=== PATIENT | male | born 1970 | race Caucasian/White ===

== ENCOUNTER 2020-02-14 17:35 | Inpatient (IN) | payer OTHER ==
[~2020-02-14] VITALS: Ht 185.4 cm; Wt 139.0 kg
--- NOTE | 2020-02-14 18:04 | Emergency Department Note ---
History of Present Illnes History of Present Illness Chief Complaint: General Medicine Complaints History of Present Illness This is a 50 year old male arrives to the ED with worsening bilateral pedal edema for several days, patient states edema has now spread to his scrotum.. 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 Any updates have been documented here. (ALIDA CLAROS DO) Past Medical History Recent Fever: No Clinical Suspicion of Infectio: Yes New/Unexplained Change in Ment: No Past Medical History: Hypertension, Diabetes, CHF, Hypothyroidism, Hyperlipedemia Other Surgery: DOUBLE BYPASS (ALIDA CLAROS DO) Social History Physically hurt or threatened: No (ALIDA CLAROS DO) Review of Systems Review of Systems Constitutional: Reports no symptoms EENTM: Reports no symptoms Cardiovascular: Reports no symptoms Respiratory: Reports no symptoms Gastrointestinal: Reports no symptoms Genitourinary: Reports no symptoms Musculoskeletal: Reports joint swelling Integumentary: Reports no symptoms Neurological: Reports no symptoms Psychological: Reports no symptoms Endocrine: Reports no symptoms Hematological/Lymphatic: Reports no symptoms (ALIDA CLAROS DO) Physical Exam Related Data Allergies: Coded Allergies: Penicillins (Verified Allergy, Unknown, 02/14/20) Triage Vital Signs Vital Signs Date Time Temp Pulse Resp B/P (MAP) Pulse Ox O2 Delivery O2 Flow Rate FiO2 02/14/20 17:51 98.8 80 18 159/78 100 Room Air Vital signs reviewed: Yes (ALIDA CLAROS DO) Physical Exam CONSTITUTIONAL Constitutional: Present well-developed, Present well-nourished, Present morbidly obese HENT HENT: Present normocephalic, Present atraumatic, Present oropharynx clear/moist, Present nose normal HENT L/R: Present left ext ear normal, Present right ext ear normal EYES Eyes: Reports PERRL, Reports conjunctivae normal NECK Neck: Present ROM normal PULMONARY Pulmonary: Present effort normal, Present breath sounds normal CARDIOVASCULAR Cardiovascular: Present regular rhythm, Present heart sounds normal, Present capillary refill normal, Present normal rate GASTROINTESTINAL Abdominal: Present soft, Present nontender, Present bowel sounds normal, Present distension GENITOURINARY Genitourinary: Present exam deferred, Present other (dependent scrotal edema) SKIN Skin: Present warm, Present dry MUSCULOSKELETAL Musculoskeletal: Present ROM normal, Present swelling NEUROLOGICAL Neurological: Present alert, Present oriented x 3, Present no gross motor or sensory deficits PSYCHOLOGICAL Psychological: Present mood/affect normal, Present judgement normal (ALIDA CLAROS, ) Results Laboratory Lab results reviewed: Yes (ALIDA CLAROS, ) Laboratory Laboratory Tests Test 02/14/20 18:00 White Blood Count 7.31 x10e3/uL (4.8-10.8) Red Blood Count 4.63 x10e6/uL (4.3-5.7) Hemoglobin 11.1 g/dL (14.0-18.0) Hematocrit 35.8 % (38.2-49.6) Mean Corpuscular Volume 77.3 fL (81-99) Mean Corpuscular Hemoglobin 24.0 pg (28-32) Mean Corpuscular Hemoglobin Concent 31.0 g/dL (31-35) Red Cell Distribution Width 15.4 % (11.7-14.4) Platelet Count 307 x10e3/uL (140-360) Neutrophils (%) (Auto) 75.9 % (38.7-80.0) Lymphocytes (%) (Auto) 12.9 % (18.0-39.1) Monocytes (%) (Auto) 8.6 % (4.4-11.3) Eosinophils (%) (Auto) 1.6 % (0.0-6.0) Basophils (%) (Auto) 0.3 % (0.0-1.0) Neutrophils # (Auto) 5.6 (2.1-6.9) Lymphocytes # (Auto) 0.9 (1.0-3.2) Monocytes # (Auto) 0.6 (0.2-0.8) Eosinophils # (Auto) 0.1 (0.0-0.4) Basophils # (Auto) 0.0 (0.0-0.1) Absolute Immature Granulocyte (auto 0.05 x10e3/uL (0-0.1) Sodium Level 137 mmol/L (136-145) Potassium Level 4.6 mmol/L (3.5-5.1) Chloride Level 101 mmol/L (98-107) Carbon Dioxide Level 28 mmol/L (22-29) Anion Gap 12.6 mmol/L (8-16) Blood Urea Nitrogen 40 mg/dL (7-26) Creatinine 2.14 mg/dL (0.72-1.25) Estimat Glomerular Filtration Rate 33 ML/MIN (60-) BUN/Creatinine Ratio 19 (6-25) Glucose Level 169 mg/dL (74-118) Calcium Level 9.3 mg/dL (8.4-10.2) Total Bilirubin 0.4 mg/dL (0.2-1.2) Aspartate Amino Transf (AST/SGOT) 28 IU/L (5-34) Alanine Aminotransferase (ALT/SGPT) 28 IU/L (0-55) Alkaline Phosphatase 86 IU/L (40-150) Creatine Kinase 385 IU/L (30-200) Creatine Kinase MB 5.00 ng/mL (0-5.0) Troponin I 0.072 ng/mL (0-0.300) B-Type Natriuretic Peptide 280.1 pg/mL (0-100) Total Protein 6.7 g/dL (6.5-8.1) Albumin 2.9 g/dL (3.5-5.0) Globulin 3.8 g/dL (2.3-3.5) Albumin/Globulin Ratio 0.8 (0.8-2.0) Lab results reviewed: Yes (STEVE MANRIQUEZ MD) Imaging Imaging results reviewed: Yes (ALIDA CLAROS, ) Imaging results reviewed: Yes Impressions Procedure: [id number] DX/CHEST SINGLE (PORTABLE) Exam Date: 02/14/20 Exam Time: 1840 REPORT STATUS: Signed EXAM: CHEST SINGLE (PORTABLE), DATE: 02/14/2020 6:40 PM INDICATION: Pedal edema. COMPARISON: None FINDINGS: Support devices: None. Lungs/pleura: The lungs are hypoinflated with bronchovascular crowding. There are prominent interstitial lung markings and probable trace left pleural effusion. Cardiac and mediastinal: the heart is mildly enlarged. Bones and soft tissues: Status post median sternotomy. No acute osseous abnormality. IMPRESSION: 1. Cardiomegaly with prominent interstitial lung markings which likely reflect mild pulmonary edema. 2. Probable trace left pleural effusion. The image was reviewed by Monik Cordoba MD. Signed by: Monik Cordoba MD on 02/14/2020 8:43 PM Dictated By: MONIK CORDOBA MD 42 Transcribed By: KG on 02/14/202042 (STEVE MANRIQUEZ MD) Assessment & Plan Medical Decision Making MDM 50-year-old arrived to the ED with complaints of bilateral pedal edema that is worsening and now spreading up to his scrotum. Patient findings after [place] to follow labs and ultimately disposition the patient (ALIDA CLAROS DO) MDM i spoke with dr figueroa. admit pt to inpatient (STEVE MANRIQUEZ MD) Assessment & Plan Final Impression: (1) Cellulitis (2) Edema (ALIDA CLAROS DO) Final Impression: (1) Cellulitis (2) Edema (3) Pulmonary edema (4) Renal insufficiency (STEVE MANRIQUEZ MD) Depart Disposition: ADMITTED Last Vital Signs Date Time Temp Pulse Resp B/P (MAP) Pulse Ox O2 Delivery O2 Flow Rate FiO2 02/14/20 17:51 98.8 80 18 159/78 100 Room Air (ALIDA CLAROS DO) ALIDA CLAROS DO Feb 14, 2020 18:03 STEVE MANRIQUEZ MD Feb 14, 2020 20:51
[2020-02-14] MEDS ORDERED: CLINDAMYCIN PHOS 900MG/ 50ML 50 ML IV STA (18:21)
[2020-02-14 18:27] LABS: BASOPHILS % 0.3 % (0.0-1.0); EOSINOPHILS # (AUTO) 0.1 (0.0-0.4); EOSINOPHILS % 1.6 % (0.0-6.0); HEMATOCRIT 35.8 % (38.2-49.6); HEMOGLOBIN 11.1 g/dL (14.0-18.0); LYMPHOCYTES # (AUTO) 0.9 (1.0-3.2); LYMPHOCYTES % 12.9 % (18.0-39.1); MEAN CORPUSCULAR VOLUME 77.3 fL (81-99); MONOCYTES # (AUTO) 0.6 (0.2-0.8); MONOCYTES % 8.6 % (4.4-11.3); NEUTROPHILS # (AUTO) 5.6 (2.1-6.9); NEUTROPHILS % 75.9 % (38.7-80.0); PLATELET COUNT 307 x10e3/uL (140-360); RED BLOOD COUNT 4.63 x10e6/uL (4.3-5.7); RED CELL DISTRIBUTION WIDTH 15.4 % (11.7-14.4)
[2020-02-14 18:41] LABS: ALBUMIN 2.9 g/dL (3.5-5.0); ALBUMIN/GLOBULIN RATIO 0.8 (0.8-2.0); ANION GAP 12.6 mmol/L (8-16); CALCIUM 9.3 mg/dL (8.4-10.2); CREATININE, SERUM 2.14 mg/dL (0.72-1.25); POTASSIUM 4.6 mmol/L (3.5-5.1)
--- NOTE | 2020-02-14 20:47 | Diagnostic Imaging Report ---
EXAM: CHEST SINGLE (PORTABLE), DATE: 02/14/2020 6:40 PM INDICATION: Pedal edema. COMPARISON: None FINDINGS: Support devices: None. Lungs/pleura: The lungs are hypoinflated with bronchovascular crowding. There are prominent interstitial lung markings and probable trace left pleural effusion. Cardiac and mediastinal: the heart is mildly enlarged. Bones and soft tissues: Status post median sternotomy. No acute osseous abnormality. IMPRESSION: 1. Cardiomegaly with prominent interstitial lung markings which likely reflect mild pulmonary edema. 2. Probable trace left pleural effusion. The image was reviewed by Blanca Christianson MD. Signed by: Blanca Christianson MD on 02/14/2020 8:43 PM
[2020-02-14] MEDS ORDERED: SODIUM CHLORIDE FLUSH 10 ML SYR INJ PRN (21:00)
[2020-02-14] MEDS ORDERED: DEXTROSE 50% SYRINGE 50 ML IV PRN (21:00)
[2020-02-14] MEDS: FUROSEMIDE INJ 10 MG/ML 4 ML VIAL IV SCH (21:15)
[2020-02-14] MEDS: CLINDAMYCIN PHOS 900MG/ 50ML 50 ML IV SCH (21:27)
[2020-02-14] MEDS: INSULIN REGULAR, HUMAN 100 UNIT/1 ML 3ML VIAL SQ SCH (22:04)
[2020-02-15] VITALS (8 sets, daily range): BP systolic 119–156; BP diastolic 50–82
--- NOTE | 2020-02-15 01:00 | NUR ---
Patient received from ER via wheelchair. AAO x 4. Patient had no complaints of pain. Respirations even and non-labored. Admission history obtained. Initial physical assessment performed. Bilateral lower extremities erythematous/edematous. Safety measures implemented. Patient oriented to room, call light and plan of care. Patient instructed to call for assistance when needed. Call light within reach.
[2020-02-15] MEDS ORDERED: ALOGLIPTIN12.5 MG PO (01:50)
[2020-02-15] MEDS ORDERED: LISINOPRIL10 MG PO (01:50)
[2020-02-15] MEDS ORDERED: GABAPENTIN300 MG PO (01:50)
[2020-02-15] MEDS ORDERED: ATORVASTATIN CA20 MG PO (01:50)
[2020-02-15] MEDS ORDERED: FUROSEMIDE80 MG PO (01:50)
[2020-02-15] MEDS ORDERED: ZETIA10 MG PO (01:50)
[2020-02-15] MEDS ORDERED: FENOFIBRATE145 MG PO (01:50)
[2020-02-15] MEDS ORDERED: LEVOTHYROXINE88 MCG PO (01:50)
[2020-02-15] MEDS ORDERED: METOPROLOL SUCC25 MG PO (01:50)
--- NOTE | 2020-02-15 03:29 | NUR ---
Blood specimen sent to lab for analysis of cardiac enzymes.
[2020-02-15 03:57] LABS: CHOL/HDL RATIO 8.1 (3.9-4.7); CHOLESTEROL 220 MD/DL (0-199); HDL CHOLESTEROL 27 MG/DL (40-60); TRIGLYCERIDES 527 MG/DL (0-149)
[2020-02-15 04:19] LABS: THYROID STIMULATING HORMONE 3.466 uIU/mL (0.350-4.940)
[2020-02-15] MEDS ORDERED: SODIUM CHLORIDE 0.9% 250ML 250 ML ONE (05:28)
[2020-02-15 06:11] LABS: BASOPHILS % 0.3 % (0.0-1.0); EOSINOPHILS # (AUTO) 0.1 (0.0-0.4); EOSINOPHILS % 1.8 % (0.0-6.0); HEMATOCRIT 35.5 % (38.2-49.6); HEMOGLOBIN 10.9 g/dL (14.0-18.0); LYMPHOCYTES # (AUTO) 0.9 (1.0-3.2); LYMPHOCYTES % 13.9 % (18.0-39.1); MEAN CORPUSCULAR HGB CONC 30.7 g/dL (31-35); MEAN CORPUSCULAR VOLUME 78.2 fL (81-99); MONOCYTES # (AUTO) 0.6 (0.2-0.8); MONOCYTES % 9.4 % (4.4-11.3); PLATELET COUNT 302 x10e3/uL (140-360); RED BLOOD COUNT 4.54 x10e6/uL (4.3-5.7); RED CELL DISTRIBUTION WIDTH 15.6 % (11.7-14.4)
[2020-02-15] MEDS: CLINDAMYCIN PHOS 900MG/ 50ML 50 ML IV SCH ×3 (06:15→21:01)
[2020-02-15 06:27] LABS: ALBUMIN 2.8 g/dL (3.5-5.0); ALBUMIN/GLOBULIN RATIO 0.8 (0.8-2.0); ANION GAP 12.7 mmol/L (8-16); CREATININE, SERUM 2.13 mg/dL (0.72-1.25); POTASSIUM 4.7 mmol/L (3.5-5.1)
[2020-02-15 06:50] LABS: CREATINE KINASE MB 4.1 ng/mL (0-5.0)
--- NOTE | 2020-02-15 07:00 | NUR ---
Walking rounds done. Patient resting comfortably. BSSR given to oncoming nurse regarding patient's status.
--- NOTE | 2020-02-15 07:00 | NUR ---
BEDSIDE SHIFT REPORT RECEIVED FROM THE FORGING DIE SINKER RN. EDUCATED PT ABOUT FALL PRECAUTIONS. PT VERBALIZED UNDERSTANDING. CALL LIGHT WITH IN EASY REACH. BED IS LOW AND LOCKED. SIDE RAILS X2. PT DENIES NEEDS AT THIS TIME.
[2020-02-15] MEDS: INSULIN REGULAR, HUMAN 100 UNIT/1 ML 3ML VIAL SQ SCH ×4 (08:30→21:08)
[2020-02-15] MEDS: FUROSEMIDE INJ 10 MG/ML 4 ML VIAL IV SCH ×2 (08:51→21:01)
[2020-02-15] MEDS ORDERED: ASPIRIN CHEW81 MG PO (08:55)
[2020-02-15 13:39] LABS: CREATINE KINASE MB 4.6 ng/mL (0-5.0)
--- NOTE | 2020-02-15 19:15 | NUR ---
BEDSIDE SHIFT REPORT GIVEN TO THE FURNITURE ASSOCIATE RN. PT DENIED FURTHER NEEDS.
[2020-02-16] VITALS (7 sets, daily range): BP systolic 112–145; BP diastolic 52–77
[2020-02-16 06:21] LABS: BASOPHILS % 0.3 % (0.0-1.0); EOSINOPHILS # (AUTO) 0.2 (0.0-0.4); EOSINOPHILS % 2.3 % (0.0-6.0); HEMATOCRIT 36.1 % (38.2-49.6); HEMOGLOBIN 11.1 g/dL (14.0-18.0); LYMPHOCYTES # (AUTO) 0.9 (1.0-3.2); MEAN CORPUSCULAR HEMOGLOBIN 24.1 pg (28-32); MEAN CORPUSCULAR HGB CONC 30.7 g/dL (31-35); MEAN CORPUSCULAR VOLUME 78.3 fL (81-99); MONOCYTES # (AUTO) 0.6 (0.2-0.8); MONOCYTES % 9.7 % (4.4-11.3); NEUTROPHILS # (AUTO) 4.8 (2.1-6.9); NEUTROPHILS % 74.2 % (38.7-80.0); PLATELET COUNT 287 x10e3/uL (140-360); RED BLOOD COUNT 4.61 x10e6/uL (4.3-5.7); RED CELL DISTRIBUTION WIDTH 15.4 % (11.7-14.4)
[2020-02-16] MEDS: CLINDAMYCIN PHOS 900MG/ 50ML 50 ML IV SCH ×3 (06:22→21:25)
[2020-02-16 06:38] LABS: ANION GAP 12.1 mmol/L (8-16); CALCIUM 9.6 mg/dL (8.4-10.2); CREATININE, SERUM 2.13 mg/dL (0.72-1.25); POTASSIUM 5.1 mmol/L (3.5-5.1)
[2020-02-16] MEDS: INSULIN REGULAR, HUMAN 100 UNIT/1 ML 3ML VIAL SQ SCH ×4 (07:30→21:30)
--- NOTE | 2020-02-16 07:44 | NUR ---
REPORT GIVEN TO DAYSHIFT. ALERT. NO SIGNS IV INFILTRATION. BED LOCKED AND IN LOW POSITION. CALL LIGHT WITHIN REACH. BED ALARM ACTIVATED.
--- NOTE | 2020-02-16 07:50 | NUR ---
PATIENT IS ALERT, AWAKE, AND IN STABLE CONDITION WITH NO S/S OF RESPIRATORY DISTRESS. NO PAIN VOICED. BILATERAL LOWER EXTREMITIES ARE EDEMATOUS AND ANTIONE. PATIENT REFUSES NON-SKID SOCKS. CALL LIGHT IS WITHIN REACH, PATIENT INSTRUCTED TO CALL FOR ASSISTANCE NEEDED.
[2020-02-16] MEDS: FUROSEMIDE INJ 10 MG/ML 4 ML VIAL IV SCH ×2 (08:30→21:23)
[2020-02-16] MEDS ORDERED: ONDANSETRON HCL INJ 2MG/ML 2ML 2 MG/ML VIAL IV PRN (14:15)
[2020-02-16] MEDS ORDERED: TRAMADOL HCL 50 MG TAB PO PRN (14:15)
[2020-02-16] MEDS ORDERED: HYDRALAZINE HCL 20 MG/ML VIAL IV PRN (14:15)
[2020-02-16] MEDS ORDERED: ACETAMINOPHEN 325 MG TAB PO PRN (14:15)
[2020-02-16] MEDS: DOCUSATE SODIUM 100 MG CAP PO SCH ×2 (15:15→21:23)
[2020-02-16] MEDS ORDERED: FAMOTIDINE 20 MG TAB PO SCH (16:30)
[2020-02-16] MEDS: OYST-CAL-D 500MG TABLET PO SCH (16:48)
[2020-02-16] MEDS: FAMOTIDINE 20 MG/2 ML VIAL IV SCH (16:48)
[2020-02-16] MEDS: ASCORBIC ACID 500 MG TAB PO SCH (16:48)
[2020-02-16] MEDS: ZINC SULFATE 220 MG CAP PO SCH (16:48)
--- NOTE | 2020-02-16 17:15 | Progress Note ---
DATE: 02/16/2020 CONSULTING PHYSICIANS: 1. Dr. Kash Lomeli with Cardiology. 2. Dr. Jatinder Casiano with Nephrology. SUBJECTIVE: The patient is out of bed, sitting at the bedside using his computer without new complaints. Still has considerable edema. Bilateral legs tired easily after walking a short distance. Scrotal edema, nocturia while on Lasix, red streaks on the legs with weeping of fluid. OBJECTIVE: VITAL SIGNS: Temperature 97.6, heart rate 83, blood pressure 126/52, respirations 20, and oxygen saturation 95%. GENERAL: No acute distress. Awake, alert. LUNGS: Clear to auscultation. Respiratory pattern even unlabored. Breathing room air. No supplemental oxygen. HEENT: EOMI. NECK: Supple. CARDIOVASCULAR: Regular rate and rhythm. No murmur. ABDOMEN: Bowel sounds positive. Soft, nontender, obese. EXTREMITIES: With brawny edema bilaterally at the legs with obvious erythema from cellulitis. No clubbing or cyanosis noted. NEUROLOGIC: GCS is 15, nonfocal. Oriented x4. LABORATORY DATA: WBC 6.52, hemoglobin 11.1, hematocrit 36.1, platelets 287, neutrophils 74.2%. Sodium 139, potassium 5.1, chloride 103, CO2 of 29, anion gap 12.1, BUN 36, creatinine 2.13, estimated GFR 33, glucose 208. Fingerstick blood glucose results 211 and 317, calcium 9.6. On 02/15/2020, echocardiogram with ejection fraction of 55% to 60%. A 12-lead EKG had shown normal sinus rhythm with left anterior fascicular block. The heart rate is 79. Renal ultrasound and bilateral venous Doppler ultrasound have been ordered, and are pending. ASSESSMENT AND PLAN: 1. Acute kidney injury with fluid volume overload and pulmonary edema, on top of chronic kidney disease with chronic kidney disease, stage unknown. Nephrology has been consulted. The patient is on Lasix 40 mg IV q.12 hours. Strict intake and output. Scrotal support. Elevate legs above the level of the heart when in bed. 2. Acutely elevated creatine kinase, an acute hyperkalemia. Creatine kinase level was 385 yesterday. Potassium level 5.1 today. Continue Lasix and monitor lab results. 3. Acute cellulitis, bilateral lower extremities with weeping edema. Continue IV clindamycin. WBC 6.52, afebrile. Denies chills. 4. Uncontrolled type 2 diabetes mellitus with hyperglycemia. Hemoglobin A1c 9.7%. Home medication alogliptin resumed. Continue sliding scale insulin. Monitor fingerstick blood glucose levels. 5. Controlled hypertension with chronic kidney disease and stated history of congestive heart failure. Lisinopril and gabapentin on hold to protect the kidneys. Continue metoprolol and monitor blood pressure, 126/52 today. 6. Coronary artery disease, history of coronary artery bypass graft x2 vessels. Cardiology consulted. Currently, no complaints of chest pain. Continue aspirin and beta-juan alberto. 7. Left anterior fascicular block. Monitor telemetry. 8. Chronic hyperlipidemia, improved. The patient's ranch cook has been working with the patient to decrease his cholesterol, triglyceride, and hemoglobin A1c levels have renewed. Atorvastatin, Zetia, and fenofibrate. Defer any changes to Cardiology. 9. Hypothyroidism. Levothyroxine. 10. Morbid obesity with BMI 41.95, on dietary restrictions. 11. Possible obstructive sleep apnea. Outpatient sleep study advised after discharge. 12. Prophylaxis. Pepcid. BILLING CODE: [id number]. TIME SPENT: 45 minutes. Dictated by Shyam Ray NP MD OMER Meredith/ANA /[id number]
--- NOTE | 2020-02-16 18:21 | NUR ---
PATIENT WAS INFORMED EARLIER THAT STAFF IS DOING STRICT INPUT AND OUTPUT FOR HIM. PATIENT WAS PROVIDED 2 URINALS AND A BASIN TO URINATE IN D/T HIS SCROTAL DISCOMFORT- ITEMS WERE LEFT IN THE RESTROOM FOR THE PATIENT AND HE WAS AWARE. URINE COLLECTION HAT WAS ALSO OFFERED TO BE PLACED FOR THE PATIENT IN THE TOILET BUT THE PATIENT REFUSED. PATIENT IS NOT COMPLYING WITH URINATING IN A URINAL OR BASIN FOR STAFF TO MEASURE AT THIS TIME. PATIENT URINATED ONCE AND TOLD STAFF HE FORGOT TO URINATE IN THE ITEMS PROVIDED TO HIM. NO OUTPUT WAS MEASURED.
[2020-02-16 18:37] LABS: CLARITY,URINE SL CLOUDY (CLEAR); COLOR,URINE YELLOW (YELLOW); LEUKOCYTE ESTERASE ,URINE NEGATIVE (NEGATIVE); NITRITE,URINE NEGATIVE (NEGATIVE); PROTEIN,URINE DIPSTICK >=300 (NEGATIVE)
[2020-02-16 18:38] LABS: BACTERIA,URINE FEW /HPF; BILIRUBIN,URINE NEGATIVE (NEGATIVE); KETONES,URINE NEGATIVE (NEGATIVE); RBC,URINE 0-5 /HPF (0-5); URINE UROBILINOGEN 0.2 mg/dL (0.2 - 1); WBC,URINE (MAN) 0-5 /HPF (0-5)
[2020-02-16 18:39] LABS: EPITHELIAL CELLS,URINE FEW /LPF; MUCUS,URINE FEW (RARE)
--- NOTE | 2020-02-16 19:19 | NUR ---
PATIENT IS SITTING ON THE SIDE OF THE BED- IN STABLE CONDITION WITH NO S/S OF RESPIRATORY DISTRESS. NO PAIN VOICED. CALL LIGHT IS WITHIN REACH, PATIENT INSTRUCTED TO CALL FOR ASSISTANCE NEEDED. BEDSIDE REPORT GIVEN TO ONCOMING NURSE.
--- NOTE | 2020-02-16 20:26 | Consultation ---
DATE OF CONSULTATION: 02/16/2020 REQUESTING PHYSICIAN: REASON FOR CONSULTATION: Chronic kidney disease. Thank you for allowing us to participate in Mr. Lyon's care. HISTORY OF PRESENT ILLNESS: This is a 50-year-old male with worsening swelling from the legs now in his scrotum. He has some abdominal distention, has had some dyspnea. He had coronary artery bypass graft surgery x3 earlier this year any says he has known about some kidney dysfunction. He was supposed to see a kidney doctor later this month, but in between the fluid overload got worse. He had been on lisinopril, the dose has been dropped after his coronary artery bypass. He appears to be on a beta-juan alberto too. Currently, he is on IV Lasix. His chest x-ray was showing some fluid overload. Additionally, there was cellulitis noticed, so he was started on clindamycin. Serum creatinine here is 2.1. Potassium 5.1, serum CO2 29. He has a known history of microalbuminuria. He had been on Ozempic. He noticed that his weight gain was about 10 pounds within a week or so. He is also scheduled to see Cardiology here. Initially, there is a history of neuropathy based on Dr. Camarillo's records as well as CKD. Dr. Camarillo's chart shows an albumin to creatinine ratio of 3900 mcg/mg from nephrotic range, which explains the swelling, serum albumin 3.4, creatinine of 1.8, here it is 2.1; calcium of 10, and serum CO2 of 32. His A1c was 9.7, consistent with sugars not quite at goal yet. PAST HISTORY: 1. Type 2 diabetes. 2. Chronic kidney disease, likely stage III. 3. Diabetic nephropathy. 4. Nephrotic range proteinuria. 5. Coronary artery disease. 6. CABG x3. MEDICATIONS: Please see list. FAMILY HISTORY: Hypertension. REVIEW OF SYSTEMS: CONSTITUTIONAL: No fever or chills. RESPIRATORY: Some dyspnea. CARDIAC: Some decreased energy levels. VASCULAR: Leg swelling. SKIN: Redness on the legs. GI: Denies nausea, vomiting. : Continues to urinate without any straining. PHYSICAL EXAMINATION: GENERAL: Sitting up, no distress, talking in full sentences. VITAL SIGNS: Temperature 98.1, pulse 74, blood pressure 112/63. CHEST: Faint crackles. ABDOMEN: Some distention. EXTREMITIES: 2+ edema. SKIN: Redness on the shins. NEUROLOGIC: Alert, appropriate. Speech is normal. CARDIAC: Rhythm sounds regular. LABORATORY DATA: Creatinine is 2.1. Urine is pending. Potassium 5.1 (had been NURIA inhibitor). Serum CO2 is 29. Estimated GFR 33 mL/min. Hemoglobin is 11.1, white count 6.52, and platelets are 287. Coronavirus PCR is pending. He has had no sick contacts. ASSESSMENT: 1. Chronic kidney disease stage 3, likely diabetic nephropathy and hypertensive nephrosclerosis. 2. Fluid overload. 3. Potassium levels at upper ends. 4. Nephrotic range proteinuria, but NURIA inhibitor on hold at this time, which is reasonable given a K of 5.1. PLAN: 1. Continue IV Lasix. Check daily weights and avoid NSAIDs. Get renal ultrasound. Get serial chemistries. Keep fluid restricted. We may have to go on a low-potassium diet additionally. 2. Director Of Cath Lab regarding control of blood pressure, salt avoidance, importance of diabetes control to help protect the kidney function in the fci given the amount of protein in the urine that I now saw from his physician office specialist's office, it appears that he would be at high risk for progression of the kidney disease. Weight loss would also help slow down deterioration in renal function. We will follow along with you. MD FRANK OrtegaK/MODL /[id number]
[2020-02-16] MEDS: EZETIMIBE 10 MG TAB PO SCH (21:23)
[2020-02-16] MEDS: ATORVASTATIN 20 MG TAB PO SCH (21:23)
[2020-02-16 22:17] LABS: EOSINOPHIL SMEAR,URINE NONE SEEN (NONE SEEN)
--- NOTE | 2020-02-16 22:31 | History and Physical ---
CHIEF COMPLAINT: Edema. HISTORY OF PRESENT ILLNESS: The patient is a 50-year-old male who has had worsening bilateral pedal edema for several days, now coming in with scrotal edema. This edema has been going on intermittently for about two years, but since he had his coronary artery bypass graft in May of 2019, it has been happening more frequently. In September, it began getting worse. About a month ago, his scrotal edema started. The weeping in the leg started about a week ago. He reports a weight gain of about 20 pounds in the last 10 days. PAST MEDICAL HISTORY: CHF, hypertension, diabetes mellitus, hyperlipidemia, hypothyroidism, renal insufficiency. The patient states he has been seeing a top lift scourer at [facility] Dr. Velazco. His next followup telemedicine appointment is 03/12/2020. His primary care physician is Dr. Nirmal Avendano in [place]. His strategic sourcing consultant is Dr. Camarillo who he sees regularly on an outpatient basis. His strategic sourcing consultant is quite pleased that his triglycerides have decreased from about 5000 into the 500s. Also, his hemoglobin A1c has dropped from 13 to below 10. Overall, his cholesterol and triglycerides have been much improved. The patient denies any history of TN or stroke. He states that initially he was going to have a triple bypass, however, one of the coronary arteries that was not bypassed was calcified. He has an appointment with the outpatient shredding specialist in the last week of February. This will be a new physician for him to see. He does not remember that shredding specialist name. PAST SURGICAL HISTORY: Coronary artery bypass graft x2 vessels in May of 2019, wisdom teeth surgery. FAMILY HISTORY: The father had hyperlipidemia, type 2 diabetes mellitus, myocardial infarction, stents, and edema. Mother, no significant health history. Maternal grandmother had a sudden heart attack which caused her . SOCIAL HISTORY: The patient lives with his and 29-year-old daughter. He does report tobacco use dipping daily using about 3-4 cans of dip a week. He seldom drinks alcohol. Denies any previous use of illicit drugs. ALLERGIES: PENICILLIN. HOME MEDICATIONS: He takes Lasix 40 mg tablets, takes 80 mg in the morning and 40 mg in the evening. Also on aspirin, atorvastatin, Zetia, fenofibrate, gabapentin, levothyroxine, lisinopril, metoprolol, alogliptin. REVIEW OF SYSTEMS: CONSTITUTIONAL: The patient reports a weight gain of about 20 pounds in 10 days. He has been trying to diet and exercise in an effort to lose weight. Denies any fever, chills, or sick contacts. EYES: He wears glasses. No complaints of ears, nose, throat or psychiatric problems. RESPIRATORY: Dyspnea on exertion. GENITOURINARY: Scrotal edema and nocturia with use of Lasix at home. INTEGUMENTARY: He has noticed some red streaks with weeping of the fluid at the legs. CARDIOVASCULAR: Bilateral feet swelling. Denies any chest pain or palpitations. GASTROINTESTINAL: He has had changes in his bowel movements over the past year. He has multiple bowel movements in a day now and they are smaller and harder. MUSCULOSKELETAL: His legs tire after walking a short distance. NEUROLOGIC: No complaints of headaches or dizziness. ENDOCRINE: Known diabetic. HEMATOLOGIC: Denies any bleeding or bruising. PHYSICAL EXAMINATION: VITAL SIGNS: Temperature 98.1, heart rate 79, blood pressure 148/70, respirations 18, and oxygen saturation 100% on room air. Height 6 feet 1 inch, weight 318 pounds, BMI 41.95. GENERAL: The patient is out of bed, sitting in a chair at the bedside using his computer. LUNGS: Generally clear to auscultation. Respiratory pattern even and nonlabored. HEENT: EOMI. Moist mucous membranes. NECK: Supple. No JVD or thyromegaly noted. CARDIOVASCULAR: Regular rate and rhythm. No murmur. ABDOMEN: Large pannus. Positive bowel sounds. Nontender. No guarding. EXTREMITIES: With brawny edema bilaterally. Erythema noted at both legs with some weeping. No clubbing or cyanosis noted. NEUROLOGICAL: GCS 15. Nonfocal. LABORATORY DATA: On admission 02/13, WBC 7.31, hemoglobin 11.1, hematocrit 35.8, platelets 307. On 02/13, sodium 137, potassium 4.6, chloride 101, CO2 of 28, anion gap 12.6, BUN 40, creatinine 2.14, estimated GFR 33, glucose 169, calcium 9.3, total bilirubin 0.4, AST 28, ALT 28, alkaline phosphatase 86. Creatine kinase 385, CK-MB 5, troponin I 0.072. Total protein 6.7, albumin 2.9. Coronavirus PCR pending. Today, WBC 6.78, hemoglobin 10.9, hematocrit 35.5, platelets 302. B-type natriuretic peptide yesterday 280.1. Today creatine kinase 362, then 357; CK-MB 4, then 4.1; troponin I 0.063, then 0.067. Triglycerides 527, cholesterol 220, HDL 27. TSH 3.466. Today, sodium 141, potassium 4.7, chloride 105, CO2 of 28, anion gap 12.7, BUN 41, creatinine 2.13, estimated GFR 33, glucose 274. Hemoglobin A1c set at 9.7%. Fingerstick blood glucose levels 251 and 309, calcium 9.0, total bilirubin 0.3, AST 26, ALT 26, alkaline phosphatase 83, total protein 6.4, albumin 2.8. Echocardiogram showed overall left ventricular systolic function with ejection fraction of 55% to 60%. The diastolic filling pattern normal for the age of the patient. Mitral valve E velocity 1.14 milliseconds. Mitral valve A velocity 0.86 milliseconds. Mild aortic valve sclerosis without stenosis. A 12-lead EKG showed normal sinus rhythm with left anterior fascicular block with a heart rate of 79. Chest x-ray showed cardiomegaly with mild pulmonary edema. ASSESSMENT AND PLAN: 1. Acute on chronic diastolic congestive heart failure with pulmonary edema. The patient has been started on Lasix 40 mg IV q.12 hours. The patient states that he has a history of congestive heart failure with ejection fraction of 60% to 65%, shows preserved systolic function. No mention of impaired relaxation on echocardiogram and E velocity is okay. He does have pulmonary edema. Thus, this may be more related to kidneys than congestive heart failure. 2. Fluid volume overload. Continue Lasix. Monitor intake and output. May need to add fluid restriction. 3. Acute kidney injury with chronic kidney disease, stage unknown. No previous record of glomerular filtration rate and creatinine available. The patient likely has chronic kidney disease. Monitor renal labs for improvement. 4. Acute cellulitis bilateral lower extremities with weeping edema. Clindamycin has been started. WBCs within normal limits. Afebrile. No complaints of fever or chills. Monitor closely. 5. Uncontrolled type 2 diabetes mellitus with hyperglycemia. Hemoglobin A1c 9.7%, per patient this is a considerable improvement. Glucose 274, sliding scale insulin. Monitor fingerstick blood glucose levels. Renal ADA diet, nutritional support with renal ADA diet. 6. Controlled hypertension with congestive heart failure and chronic kidney disease. The patient takes lisinopril at home with metoprolol and Lasix. We will resume metoprolol. Continue current Lasix dose. Hold lisinopril to preserve kidney function. 7. Coronary artery disease, history of coronary artery bypass graft x2 vessels. Cardiology consult. 8. Hyperlipidemia, chronic, improved. The patient is on Zetia and fenofibrate at home as well as atorvastatin, i will resume these. 9. Elevated creatine kinase, monitor. 10. Left anterior fascicular block. Monitor telemetry. 11. Morbid obesity with BMI of 41.95. Dietary restrictions. 12. Possible obstructive sleep apnea. Outpatient sleep study advised after discharge. 13. Prophylaxis, Protonix. H and P time spent 60 minutes. Billing code [id number]. Dictated by Shyam Ray NP MD OMER Meredith/MODL /[id number]
[2020-02-17] VITALS (8 sets, daily range): BP systolic 109–143; BP diastolic 53–91
[2020-02-17] MEDS: CLINDAMYCIN PHOS 900MG/ 50ML 50 ML IV SCH ×3 (05:17→22:00)
[2020-02-17] MEDS: LEVOTHYROXINE SODIUM 100 MCG TAB PO SCH (05:17)
[2020-02-17] MEDS ORDERED: LEVOTHYROXINE SODIUM 88 MCG TAB PO SCH (06:00)
[2020-02-17 06:25] LABS: BASOPHILS % 0.1 % (0.0-1.0); EOSINOPHILS # (AUTO) 0.1 (0.0-0.4); EOSINOPHILS % 2.1 % (0.0-6.0); HEMATOCRIT 35.3 % (38.2-49.6); HEMOGLOBIN 10.9 g/dL (14.0-18.0); LYMPHOCYTES # (AUTO) 0.8 (1.0-3.2); LYMPHOCYTES % 11.7 % (18.0-39.1); MEAN CORPUSCULAR HEMOGLOBIN 24.5 pg (28-32); MEAN CORPUSCULAR HGB CONC 30.9 g/dL (31-35); MEAN CORPUSCULAR VOLUME 79.3 fL (81-99); MONOCYTES # (AUTO) 0.6 (0.2-0.8); MONOCYTES % 8.7 % (4.4-11.3); NEUTROPHILS # (AUTO) 5.2 (2.1-6.9); NEUTROPHILS % 76.8 % (38.7-80.0); PLATELET COUNT 281 x10e3/uL (140-360); RED BLOOD COUNT 4.45 x10e6/uL (4.3-5.7); RED CELL DISTRIBUTION WIDTH 14.9 % (11.7-14.4)
[2020-02-17 07:03] LABS: MAGNESIUM 2.2 MG/DL (1.3-2.1); PHOSPHORUS 4.6 MG/DL (2.3-4.7)
--- NOTE | 2020-02-17 07:15 | NUR ---
REPORT GIVEN TO DAYSHIFT NURSE. ALERT. NO SIGNS IV INFILTRATION. BED LOCKED AND IN LOW POSITION. CALL LIGHT WITHIN REACH. BED ALARM ACTIVATED.
[2020-02-17 07:28] LABS: ALBUMIN 2.8 g/dL (3.5-5.0); ALBUMIN/GLOBULIN RATIO 0.8 (0.8-2.0); ANION GAP 11.8 mmol/L (8-16); CALCIUM 9.3 mg/dL (8.4-10.2); CREATININE, SERUM 2.2 mg/dL (0.72-1.25); POTASSIUM 4.8 mmol/L (3.5-5.1)
[2020-02-17] MEDS: INSULIN REGULAR, HUMAN 100 UNIT/1 ML 3ML VIAL SQ SCH ×4 (07:30→21:00)
--- NOTE | 2020-02-17 07:30 | NUR ---
PATIENT IS IN STABLE CONDITION WITH NO S/S OF RESPIRATORY DISTRESS- NO PAIN VOICED. TELE APPLIED. CALL LIGHT IS WITHIN REACH, PATIENT INSTRUCTED TO CALL FOR ASSISTANCE NEEDED.
[2020-02-17] MEDS: FAMOTIDINE 20 MG/2 ML VIAL IV SCH ×2 (08:39→15:52)
[2020-02-17] MEDS: FUROSEMIDE INJ 10 MG/ML 4 ML VIAL IV SCH ×2 (08:39→21:34)
[2020-02-17] MEDS: METOPROLOL SUCCINATE 25 MG TAB XL PO SCH (08:42)
[2020-02-17] MEDS: OYST-CAL-D 500MG TABLET PO SCH ×2 (08:42→16:26)
[2020-02-17] MEDS: FENOFIBRATE 48 MG TAB PO SCH (08:43)
[2020-02-17] MEDS: MULTIVITAMINS/MINERALS TAB PO SCH (08:43)
[2020-02-17] MEDS: ASPIRIN 81 MG CHEW TAB PO SCH (08:43)
[2020-02-17] MEDS: DOCUSATE SODIUM 100 MG CAP PO SCH ×3 (08:43→21:34)
[2020-02-17] MEDS: ASCORBIC ACID 500 MG TAB PO SCH ×2 (08:43→16:26)
[2020-02-17] MEDS ORDERED: ALOGLIPTIN BENZOATE 12.5 MG PO SCH (09:00)
[2020-02-17] MEDS: POLYETHYLENE GLYCOL 3350 17 GM PACK PO SCH (09:00)
[2020-02-17] MEDS: ZINC SULFATE 220 MG CAP PO SCH ×2 (10:50→16:26)
--- NOTE | 2020-02-17 12:34 | Consultation ---
DATE OF CONSULTATION: Cardiology Consultation REQUESTING PHYSICIAN: Dr. Duron. REASON FOR CONSULTATION: CHF and also bilateral lower extremity edema. HISTORY OF PRESENT ILLNESS: Mr. Lyon is a 50-year-old male with a pertinent past medical history of CAD, status post coronary artery bypass graft x2 in May of 2019 and a recent follow up with his electronic console display operator in November of 2019, that he reports everything was well. He states that he came into the emergency room due to worsening bilateral lower extremity edema and also he started weeping and was unable to wear his shoes because of this edema. He denies any chest pain or shortness of breath. Does endorse some degree of orthopnea. Denies any sick contacts, fever, chills, abdominal discomfort, or dysuria. He does report he has a medical history of kidney insufficiency and also type 2 diabetes. REVIEW OF SYSTEMS: Negative except as mentioned above. SOCIAL HISTORY: . Does report tobacco use and dips. Denies any illicit drug use. Does drink occasionally. PAST SURGICAL HISTORY: Coronary artery bypass graft in May of 2019 and wisdom teeth removal. PHYSICAL EXAMINATION: VITAL SIGNS: Temperature 97.7, pulse 69, respiratory rate 18, blood pressure 109/53, and oxygen saturation 95% on room air. GENERAL: Alert and oriented x3, resting comfortably in bed. Does not appear to be in any acute distress. NECK: Supple. No JVD noted. CARDIOVASCULAR: Regular rate and rhythm. Normal S1 and S2. No murmurs. No gallops. ABDOMEN: Rounded, soft, and tender. LUNGS: Clear to auscultation throughout. No wheezing. No rhonchi or crackles. EXTREMITIES: Lower extremities, 3+ pitting edema with slightly redness noted and palpable pulses. CARDIOVASCULAR MEDICATIONS: Aspirin 81 mg p.o. daily, metoprolol 25 mg p.o. daily, furosemide 40 mg IV q.12 hours, atorvastatin 80 mg p.o. at bedtime, and Zetia 10 mg p.o. at bedtime. LABORATORY DATA: WBC 6.75, hemoglobin 10.9, hematocrit 35.3, and platelets 281. Sodium 138, potassium 4.8, BUN 34, creatinine 2.20, and glucose 351. Troponin last on admission 0.068. IMAGING: Chest x-ray on admission with cardiomegaly with prominent interstitial land markings, which likely reflects pulmonary edema. TELEMETRY: Normal sinus rhythm. IMPRESSION: 1. Coronary artery disease, status post coronary artery bypass graft, May 2019. 2. Walxi-rf-fajeufv kidney failure. 3. Bilateral lower extremity edema. 4. Fluid overload with 20 pounds weight gain in the last week reported. 5. Obesity. 6. Cellulitis. RECOMMENDATIONS: Continue with the above listed cardiac medications. Echocardiogram ordered and completed, awaiting review, recommendations will follow. Bilateral lower extremity ultrasound rule out DVT. Maintain on telemetry at all time. Nephrology recommendations much appreciated. We will continue to follow this patient very closely. Thank you for allowing us to participate in his care. Dictated by Lana Roach NP Kash Lomeli MD [facility]/ANA /[id number]
--- NOTE | 2020-02-17 19:41 | NUR ---
PATIENT IS RESTING AT BEDSIDE- IN STABLE CONDITION WITH NO S/S OF RESPIRATORY DISTRESS. NO PAIN VOICED. TELEMETRY APPLIED. CALL LIGHT IS WITHIN REACH, PATIENT INSTRUCTED TO CALL FOR ASSISTANCE NEEDED. BEDSIDE SHIFT REPORT GIVEN TO ONCOMING NURSE.
--- NOTE | 2020-02-17 20:08 | NUR ---
RECEIVED PT IN BED AOX3 NO ACUTE DISTRESS NOTED BILATERAL LOWER LEG EDEMA DENIES PAIN CALL LIGHT WITH IN REACH ,CONTINUE TO MONITOR
[2020-02-17] MEDS: INSULIN GLARGINE 100 UNITS/ML VIAL SQ SCH (21:00)
[2020-02-17] MEDS: EZETIMIBE 10 MG TAB PO SCH (21:34)
[2020-02-17] MEDS: ATORVASTATIN 20 MG TAB PO SCH (21:34)
[2020-02-18] VITALS: BP 131/68
[2020-02-18 04:00] VITALS: BP 138/75
[2020-02-18] MEDS: CLINDAMYCIN PHOS 900MG/ 50ML 50 ML IV SCH ×3 (06:00→22:00)
[2020-02-18] MEDS: LEVOTHYROXINE SODIUM 100 MCG TAB PO SCH (06:00)
--- NOTE | 2020-02-18 06:18 | NUR ---
PT RESTING .DENIES PAIN CALL LIGHT WITH IN REACH .CONTINUE TO MONITOR
[2020-02-18 07:14] LABS: ANION GAP 13.3 mmol/L (8-16); CALCIUM 9.4 mg/dL (8.4-10.2); CREATININE, SERUM 2.24 mg/dL (0.72-1.25); POTASSIUM 5.3 mmol/L (3.5-5.1)
[2020-02-18] MEDS: INSULIN REGULAR, HUMAN 100 UNIT/1 ML 3ML VIAL SQ SCH ×4 (07:30→21:00)
--- NOTE | 2020-02-18 07:31 | NUR ---
BEDSIDE REPORT GIVEN TO THE ONCOMING NURSE
--- NOTE | 2020-02-18 08:42 | NUR ---
aware of K5.3
[2020-02-18 08:48] VITALS: BP 127/68
[2020-02-18] MEDS: POLYETHYLENE GLYCOL 3350 17 GM PACK PO SCH (09:00)
[2020-02-18] MEDS: DOCUSATE SODIUM 100 MG CAP PO SCH ×3 (09:00→21:00)
[2020-02-18] MEDS ORDERED: SOD POLYSTYRENE SULFONATE SUSP 15 GM/60 ML BTL PR ONE (09:10)
[2020-02-18] MEDS ORDERED: LACTULOSE SYRUP 20 GM/30 ML UDC PO ONE (09:10)
[2020-02-18] MEDS: ASCORBIC ACID 500 MG TAB PO SCH ×2 (09:26→17:12)
[2020-02-18] MEDS: ZINC SULFATE 220 MG CAP PO SCH ×2 (09:26→17:12)
[2020-02-18] MEDS: ASPIRIN 81 MG CHEW TAB PO SCH (09:26)
[2020-02-18] MEDS: FENOFIBRATE 48 MG TAB PO SCH (09:26)
[2020-02-18] MEDS: FAMOTIDINE 20 MG/2 ML VIAL IV SCH ×2 (09:26→17:12)
[2020-02-18] MEDS: FUROSEMIDE INJ 10 MG/ML 4 ML VIAL IV SCH ×2 (09:26→21:00)
[2020-02-18] MEDS: OYST-CAL-D 500MG TABLET PO SCH ×2 (09:26→17:12)
[2020-02-18] MEDS: METOPROLOL SUCCINATE 25 MG TAB XL PO SCH (09:26)
[2020-02-18] MEDS: MULTIVITAMINS/MINERALS TAB PO SCH (09:26)
[2020-02-18] MEDS ORDERED: SODIUM CHLORIDE 0.9% 250ML 250 ML ONE (12:52)
[2020-02-18 13:19] VITALS: BP 142/67
--- NOTE | 2020-02-18 13:23 | Progress Note ---
DATE: 02/18/2020 Cardiology Progress Note SUBJECTIVE: The patient denies chest pain or shortness of breath. OBJECTIVE: VITAL SIGNS: Temperature 97.8 degrees, pulse 78, respiratory rate 17, and blood pressure 127/68, and oxygen saturation 97%. GENERAL: Awake, alert, in no acute distress. LUNGS: Clear to auscultation bilaterally. No wheezes or crackles. CARDIOVASCULAR: Normal rate, regular rhythm. No murmur. Normal S1, S2. ABDOMEN: Soft, nontender. EXTREMITIES: 1+ pitting edema. CARDIAC MEDICATIONS: Metoprolol succinate 25 mg p.o. daily, aspirin 81 mg p.o. daily, fenofibrate 48 mg p.o. daily, furosemide 40 mg IV q.12 hours, Zetia 10 mg p.o. at bedtime, atorvastatin 80 mg p.o. at bedtime, levothyroxine 100 mcg p.o. daily. LABORATORY DATA: Sodium 141, potassium 5.3, chloride 103, CO2 of 30, BUN 32, creatinine 2.24. TELEMETRY: Personally reviewed and interpreted, revealing normal sinus rhythm. IMPRESSION: 1. Coronary artery disease, status post CABG in May 2019. 2. Djsri-ay-hotzoae kidney disease. 3. Heart failure with preserved ejection fraction. 4. Cellulitis. 5. Obesity. RECOMMENDATIONS: Continue current cardiac medications. Continue IV diuretics. Monitor creatinine. Replete electrolytes. Echocardiogram demonstrated normal LV systolic function. Monitor the patient on telemetry. Monitor volume status. Antibiotics per primary service. Thank you for this consult. We will continue to follow. Alaina Goodman MD ABS/MODL /[id number]
[2020-02-18 18:18] VITALS: BP 133/71
[2020-02-18 18:40] LABS: CREATININE,URINE RANDOM 135.94 mg/dL (63-166)
[2020-02-18 18:55] LABS: TOTAL PROTEIN, URINE 1103.2 mg/dL (1-14)
--- NOTE | 2020-02-18 19:46 | NUR ---
Report given to oncoming nurse of patient's status. No s/s of acute distress noted. Side rails upx2, call light within reach.
--- NOTE | 2020-02-18 19:56 | NUR ---
Received change of shift report from AM nurse. Walking rounds completed.
[2020-02-18 20:00] VITALS: BP 144/77
[2020-02-18] MEDS: INSULIN GLARGINE 100 UNITS/ML VIAL SQ SCH (21:00)
[2020-02-18] MEDS: ATORVASTATIN 20 MG TAB PO SCH (21:00)
[2020-02-18] MEDS: EZETIMIBE 10 MG TAB PO SCH (21:00)
[2020-02-18 21:43] LABS: CLARITY,URINE SL CLOUDY (CLEAR); COLOR,URINE YELLOW (YELLOW); KETONES,URINE NEGATIVE (NEGATIVE); LEUKOCYTE ESTERASE ,URINE NEGATIVE (NEGATIVE); NITRITE,URINE NEGATIVE (NEGATIVE); PROTEIN,URINE DIPSTICK >=300 (NEGATIVE)
[2020-02-18 21:44] LABS: BILIRUBIN,URINE NEGATIVE (NEGATIVE); URINE UROBILINOGEN 0.2 mg/dL (0.2 - 1)
[2020-02-18 21:54] LABS: BACTERIA,URINE FEW /HPF
--- NOTE | 2020-02-18 22:16 | Consultation ---
DATE OF CONSULTATION: 02/18/2020 HISTORY OF PRESENT ILLNESS: A 50-year-old white gentleman, who is currently lying, history of diabetes for 25 years with retinopathy. Has had coronary artery bypass surgery, has underlying hyperlipidemia, peripheral neuropathy, hypothyroidism, and hypertension. He was recently told he had abnormal kidney function, which is why he was asked to see a bank president. He has not seen one as yet. CURRENT MEDICATIONS: He is on clindamycin 900 mg IV q.8. He is on aspirin 81 mg daily, ascorbic acid, Tylenol p.r.n., calcium carbonate 500 mg p.o. b.i.d., and atorvastatin 80 mg at bedtime. He is on fenofibrate 48 mg p.o. daily. He is on Zetia 10 mg at bedtime. He is on furosemide 40 mg IV q.12. He is on insulin, lactulose, levothyroxine 100 mcg daily, and metoprolol 25 mg p.o. daily. He is on multivitamins and zinc sulfate. He is currently awake, alert, sitting up, in no apparent distress. LABORATORY DATA: Show white count 7.31 and hemoglobin 11.1. Sodium 141, potassium 5.3, bicarbonate 30, BUN 32, and creatinine 2.2. SOCIAL HISTORY: The patient is . Does not smoke or drink. FAMILY HISTORY: Significant for diabetes. PHYSICAL EXAMINATION: GENERAL: Awake, alert, oriented x3, sitting up, in no apparent distress. VITAL SIGNS: Blood pressure 130/68, pulse rate 81, afebrile, and oxygen saturation 98%. HEAD AND NECK: Cornea clear. Oral mucosa moist. LUNGS: Decreased air entry at bases, left more than right. No rales. HEART: S1 and S2 audible. ABDOMEN: Otherwise soft and nontender. Sternotomy incision scar noted. EXTREMITIES: Lower extremity examination shows 2 to 3+ edema bilaterally. IMPRESSION: Evidence of hyperkalemia, acute kidney injury, most likely chronic kidney disease stage 3, underlying longstanding history of diabetes. We will obtain urinalysis, spot urine protein/creatinine ratio. We will obtain comprehensive metabolic panel in the morning. Check for total proteins and globulin gap. In the meantime, I will discontinue fenofibrate because of risk for long-term nephrotoxicity from fenofibrate. Continue with IV Lasix and NATALIE hoses. Please see orders. MD JOHANNA Bateman/ANA /[id number]
[2020-02-19] VITALS (7 sets, daily range): BP systolic 141–168; BP diastolic 18–87
--- NOTE | 2020-02-19 | NUR ---
Patient sitting at the side of the bed. C/O DARLING meds give as ordered by . BS at 343 insulin given as ordered. Left hand 18G intact. AAOx3. Continue monitor.
--- NOTE | 2020-02-19 04:36 | NUR ---
Patient resting quitly at this time.
[2020-02-19] MEDS: LEVOTHYROXINE SODIUM 100 MCG TAB PO SCH (05:37)
[2020-02-19] MEDS: CLINDAMYCIN PHOS 900MG/ 50ML 50 ML IV SCH (05:37)
[2020-02-19 06:19] LABS: ALBUMIN 2.8 g/dL (3.5-5.0); ALBUMIN/GLOBULIN RATIO 0.8 (0.8-2.0); ANION GAP 11.4 mmol/L (8-16); CALCIUM 8.8 mg/dL (8.4-10.2); CREATININE, SERUM 2.33 mg/dL (0.72-1.25); POTASSIUM 4.4 mmol/L (3.5-5.1)
--- NOTE | 2020-02-19 07:00 | NUR ---
RECEIVED BEDSIDE SHIFT REPORT FROM OFF GOING NIGHT NURSE. PATIENT IN STABLE CONDITION, NO S/S OF DISTRESS NOTED. TELEMETRY APPLIED. IV SITE ASYMPTOMATIC, AND PATENT WITH TRANSPARENT DRESSING C/D/I. BED IN LOWEST POSITION AND LOCKED. CALL LIGHT WITHIN REACH.
[2020-02-19] MEDS: INSULIN REGULAR, HUMAN 100 UNIT/1 ML 3ML VIAL SQ SCH ×4 (07:30→21:00)
[2020-02-19] MEDS: DOCUSATE SODIUM 100 MG CAP PO SCH ×3 (09:00→21:00)
[2020-02-19] MEDS: POLYETHYLENE GLYCOL 3350 17 GM PACK PO SCH (09:00)
[2020-02-19] MEDS: FAMOTIDINE 20 MG/2 ML VIAL IV SCH ×2 (10:04→18:00)
[2020-02-19] MEDS: FUROSEMIDE INJ 10 MG/ML 4 ML VIAL IV SCH ×2 (10:05→21:00)
[2020-02-19] MEDS: ASPIRIN 81 MG CHEW TAB PO SCH (10:06)
[2020-02-19] MEDS: MULTIVITAMINS/MINERALS TAB PO SCH (10:07)
[2020-02-19] MEDS: ZINC SULFATE 220 MG CAP PO SCH ×2 (10:08→18:00)
[2020-02-19] MEDS: OYST-CAL-D 500MG TABLET PO SCH ×2 (10:08→18:00)
[2020-02-19] MEDS: ASCORBIC ACID 500 MG TAB PO SCH ×2 (10:08→18:00)
[2020-02-19] MEDS: METOPROLOL SUCCINATE 25 MG TAB XL PO SCH (10:08)
--- NOTE | 2020-02-19 11:58 | Diagnostic Imaging Report ---
EXAM: Renal Ultrasound INDICATION: Chronic kidney disease COMPARISON: None TECHNIQUE: Transverse and longitudinal images of the kidneys and bladder were obtained. FINDINGS: Right Kidney: Length: 13.0 cm Appearance: Normal echogenicity. Collecting system: No hydronephrosis Stones: None Cyst/Mass: None Left Kidney: Length: 13.7 cm Appearance: Normal echogenicity. Collecting system: No hydronephrosis Stones: None Cyst/Mass: None Bladder: No mass or calculi. Ureteral jets not visualized. Prevoid volume estimate of 118 cc. Prostate not well visualized. IMPRESSION: No hydronephrosis or renal calculi. Signed by: Lesly Kirkland MD on 02/19/2020 11:55 AM
--- NOTE | 2020-02-19 19:02 | NUR ---
Nutrition Screen Note RD Recommendation for Physician: - Continue current diet Plan of Care: RD following, monitoring for tolerance and adequacy Nutrition reason for involvement: Early LOS Primary Diagnose(s): cellulitis, edema- pedal and scrotal, renal insufficiency PMH: CHF, CABG x 2- 2019, HTN, DM, HLD, hypothyroidism, renal insufficiency Ht: 73 in Wt: 306.38 lb BMI: 40.4 kg/m2 IBW: [address] Assessment: 02/18: 50 YOM admitted for cellulitis and edema, evaluated today for early LOS. Attempted to contact pt via room phone, no answer. Pt with good po intake, 75-100% of meals. 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 Pt followed by [facility] outpatient for DM management, per MD notes A1C and TG trending down. Will address diet education with pt at follow up. Labs and meds reviewed, BG trend elevated- on insulin. Chart reviewed. Will continue to monitor. Current Diet: 1800 ADA, Renal Malnutrition Evaluation The patient does not meet criteria for a specified degree of malnutrition at this time. Will re-evaluate at follow-up as appropriate. Diet Education Needs Assessment: Diet education indicated, will address at follow up Diet tolerance: tolerating PO Nutrition Care Level: low Signed: Cathryn Clarke RD, LD, CNSC
--- NOTE | 2020-02-19 19:27 | NUR ---
COMPLETED BEDSIDE SHIFT REPORT AND ROUNDS WITH ON COMING NIGHT NURSE. PATIENT IN STABLE CONDITION, NO S/S OF DISTRESS NOTED.TELEMETRY APPLIED. IV SITE ASYMPTOMATIC AND PATENT, WITH TRANSPARENT DRESSING C/D/I.NATALIE HOSE AND FOOT PUMPS APPLIED. BED IN LOWEST POSITION AND LOCKED. CALL LIGHT WITHIN REACH.
--- NOTE | 2020-02-19 19:29 | NUR ---
Received change of shift report from AM nurse. Walking rounds completed.
--- NOTE | 2020-02-19 19:31 | Progress Note ---
DATE: 02/19/2020 Cardiology Progress Note SUBJECTIVE: The patient denies chest pain. He does continue to report dyspnea on exertion. OBJECTIVE: VITAL SIGNS: Temperature 97.9 degrees, pulse 87, respiratory rate 17, blood pressure 152/82, and oxygen saturation 96% on room air. GENERAL: Awake, alert, in no acute distress. LUNGS: Clear to auscultation bilaterally. No wheezes or crackles. HEART: Normal rate, regular rhythm. No murmur. Normal S1, S2. ABDOMEN: Soft, nontender. EXTREMITIES: 1+ pitting edema. CARDIAC MEDICATIONS: 1. Metoprolol succinate 25 mg p.o. daily. 2. Aspirin 81 mg p.o. daily. 3. Losartan 40 mg q.12 hours. 4. Levothyroxine 100 mcg p.o. daily. 5. Zetia 10 mg p.o. at bedtime. 6. Atorvastatin 80 mg p.o. at bedtime. 7. Enalapril 10 mg p.o. at bedtime. 8. Metolazone 20 mg p.o. daily. LABORATORY DATA: Sodium 140, potassium 4.4, chloride 104, CO2 29, BUN 33, and creatinine 2.33. TELEMETRY REVIEWED: Revealing normal sinus rhythm. IMPRESSION: 1. Ylnph-cj-ocwxktc kidney disease. 2. Coronary artery disease, status post coronary artery bypass graft in May 2019. 3. Heart failure with preserved ejection fraction. 4. Cellulitis. 5. Obesity. RECOMMENDATIONS: Continue current cardiac medications. Continue IV diuretics. Urine output has been adequate. Monitor creatinine. Replete electrolytes. Echocardiogram demonstrated normal LV systolic function. Monitor the patient on telemetry. Antibiotics per primary service. Thank you for this consult. We will continue to follow. Alaina Goodman MD ABS/MODL /[id number]
[2020-02-19] MEDS ORDERED: ENALAPRIL MALEATE 10 MG TAB PO SCH (21:00)
[2020-02-19] MEDS: EZETIMIBE 10 MG TAB PO SCH (21:00)
[2020-02-19] MEDS: ATORVASTATIN 20 MG TAB PO SCH (21:00)
[2020-02-19] MEDS: INSULIN GLARGINE 100 UNITS/ML VIAL SQ SCH (21:00)
[2020-02-20] VITALS: BP 141/67
[2020-02-20 04:00] VITALS: BP 121/66
[2020-02-20] MEDS: LEVOTHYROXINE SODIUM 100 MCG TAB PO SCH (05:05)
[2020-02-20 05:40] LABS: BASOPHILS % 0.3 % (0.0-1.0); EOSINOPHILS # (AUTO) 0.2 (0.0-0.4); EOSINOPHILS % 3.3 % (0.0-6.0); HEMATOCRIT 36.1 % (38.2-49.6); HEMOGLOBIN 11.3 g/dL (14.0-18.0); LYMPHOCYTES # (AUTO) 0.9 (1.0-3.2); LYMPHOCYTES % 12.2 % (18.0-39.1); MEAN CORPUSCULAR HEMOGLOBIN 25.1 pg (28-32); MEAN CORPUSCULAR HGB CONC 31.3 g/dL (31-35); MONOCYTES # (AUTO) 0.7 (0.2-0.8); MONOCYTES % 9.3 % (4.4-11.3); NEUTROPHILS # (AUTO) 5.4 (2.1-6.9); NEUTROPHILS % 74.2 % (38.7-80.0); PLATELET COUNT 277 x10e3/uL (140-360); RED BLOOD COUNT 4.51 x10e6/uL (4.3-5.7); RED CELL DISTRIBUTION WIDTH 15.7 % (11.7-14.4)
[2020-02-20 06:02] LABS: ALBUMIN 2.7 g/dL (3.5-5.0); ALBUMIN/GLOBULIN RATIO 0.7 (0.8-2.0); ANION GAP 10.8 mmol/L (8-16); CALCIUM 9.4 mg/dL (8.4-10.2); CREATININE, SERUM 2.26 mg/dL (0.72-1.25); POTASSIUM 4.8 mmol/L (3.5-5.1)
--- NOTE | 2020-02-20 07:00 | NUR ---
RECEIVED BEDSIDE SHIFT REPORT FROM OFF GOING NIGHT NURSE. PATIENT IN STABLE CONDITION, NO S/S OF DISTRESS NOTED. TELEMETRY APPLIED. IV SITE ASYMPTOMATIC, AND PATENT WITH TRANSPARENT DRESSING C/D/I. NATALIE HOSE APPLIED. BED IN LOWEST POSITION AND LOCKED. CALL LIGHT WITHIN REACH.
[2020-02-20] MEDS: INSULIN REGULAR, HUMAN 100 UNIT/1 ML 3ML VIAL SQ SCH (07:30)
[2020-02-20 08:30] VITALS: BP 131/56
[2020-02-20] MEDS: ASPIRIN 81 MG CHEW TAB PO SCH (08:37)
[2020-02-20] MEDS: FUROSEMIDE INJ 10 MG/ML 4 ML VIAL IV SCH (08:37)
[2020-02-20] MEDS: FAMOTIDINE 20 MG/2 ML VIAL IV SCH (08:37)
[2020-02-20] MEDS: POLYETHYLENE GLYCOL 3350 17 GM PACK PO SCH (08:38)
[2020-02-20] MEDS: DOCUSATE SODIUM 100 MG CAP PO SCH (08:38)
[2020-02-20] MEDS: MULTIVITAMINS/MINERALS TAB PO SCH (08:39)
[2020-02-20] MEDS: OYST-CAL-D 500MG TABLET PO SCH (08:39)
[2020-02-20] MEDS: ASCORBIC ACID 500 MG TAB PO SCH (08:39)
[2020-02-20] MEDS: METOPROLOL SUCCINATE 25 MG TAB XL PO SCH (08:39)
[2020-02-20] MEDS: ZINC SULFATE 220 MG CAP PO SCH (08:40)
[2020-02-20] MEDS ORDERED: METOLAZONE 5 MG TAB PO SCH (09:00)
[2020-02-20 09:09] VITALS: BP 131/56
[2020-02-20] MEDS ORDERED: VASOTEC10 MG PO (10:07)
[2020-02-20] MEDS ORDERED: METOLAZONE5 MG PO (10:07)
[2020-02-20] MEDS ORDERED: FUROSEMIDE40 MG PO (10:07)
--- NOTE | 2020-02-20 10:48 | NUR ---
THE PATIENT KEEPS TAKING THE FOOT PUMPS OFF. THE FOOT PUMPS HAVE BEEN TAKEN OFF MULTIPLE TIMES TODAY.
[2020-02-20] MEDS ORDERED: ONDANSETRON HCL 4 MG ORAL DISINTEGRATING TAB PO PRN (11:15)
--- NOTE | 2020-02-20 12:46 | NUR ---
PATIENT DISCHARGED HOME. PATIENT OFF THE UNIT @ 1225 VIA WHEELCHAIR ACCOMPANIED BY THE PCT TO THE LOBBY. PATIENT IN STABLE CONDITION, NO S/S OF DISTRESS NOTED. NO PAIN VOICED. IV ACCESS REMOVED WITH TIP INTACT. ALL PERSONAL ITEMS TAKEN WITH THE PATIENT. DISCHARGE TEACHING AND INSTRUCTIONS GIVEN TO THE PATIENT. UNDERSTANDING VERBALIZED BY THE PATIENT. DISCHARGE PAPERWORK AND PRESCRIPTIONS GIVEN TO THE PATIENT.
--- NOTE | 2020-02-20 21:16 | Discharge Summary ---
ADMISSION DIAGNOSES: Acute on chronic diastolic congestive heart failure with pulmonary edema, acute kidney injury on chronic kidney disease 3, bilateral lower extremity cellulitis, type 2 diabetes, hypertension with chronic diastolic congestive heart failure and chronic kidney disease 3, coronary artery disease with percutaneous coronary intervention, hyperlipidemia, elevated CK plus rhabdo, morbid obesity with a BMI of 41.95. DISCHARGE DIAGNOSES: Acute on chronic diastolic congestive heart failure with pulmonary edema, acute kidney injury on chronic kidney disease 3, bilateral lower extremity cellulitis, type 2 diabetes, hypertension with chronic diastolic congestive heart failure and chronic kidney disease 3, coronary artery disease with percutaneous coronary intervention, hyperlipidemia, elevated CK plus rhabdo, morbid obesity with a BMI of 41.95. HISTORY: Chronic diastolic CHF, hypertension, diabetes, hyperlipidemia, hypothyroidism, CKD 3. SURGICAL HISTORY: CABG x2 vessel, wisdom teeth surgery. FAMILY HISTORY: The patient's father had diabetes. The patient's maternal grandmother and father had heart attack. SOCIAL HISTORY: The patient admits to using tobacco dip and occasional alcohol use. HOSPITAL COURSE: A 50-year-old male admits for worsening bilateral foot edema for several days as well as scrotal edema. The edema has been intermittent for about two years, but since he had his bypass in 2019 and it has been happening more frequently. The scrotal edema started about a month ago and his legs began weeping about one week ago. He reports a 20 pounds weight gain in the last 10 days. On admission, patient was started on Lasix IV q.12 hours. Cardiology was consulted. Chest x-ray showed cardiomegaly, which likely reflect mild pulmonary edema and probable trace left pleural effusion. Bilateral lower extremity venous Doppler was negative for DVT. Echo showed an EF of 60% to 65%. BNP on admission was 280. Creatinine remained stable throughout hospitalization. Nephrology was consulted. After many days of IV Lasix the patient is ready for discharge home. He was sent home with new prescription for enalapril, metolazone and Lasix b.i.d. He was advised on fluid restriction. Renal ultrasound showed no hydronephrosis or renal calculi. Nephrology agrees with discharge home as well as Cardiology. He will follow up with primary care in 1 to 2 weeks and keep his scheduled appointment with Nephrology in 1 week. The patient understands instructions and agrees to plan. Vital signs stable. The patient is afebrile. Dictated by Fadumo M Denis, DELINQUENT TAX COLLECTOR ASSISTANT MD THEE Meredith/ANA /[id number]
--- NOTE | 2020-02-22 11:44 | Progress Note ---
DATE: 02/17/2020 CONSULTING PHYSICIANS: Jatinder Casiano MD and Kash Lomeli MD SUBJECTIVE: The patient is out of bed, sitting at a couch at the bedside using his computer. The patient is advised to elevate his legs above the level of his heart while sleeping. Elevate scrotum whenever able. His scrotal edema is improving. The patient states Dr. Swenson spoke to him yesterday and told him to weigh himself daily. His phlegm has improved. He does still have considerable leg edema. OBJECTIVE: VITAL SIGNS: Temperature 97.7, heart rate 69, blood pressure 109/53, respirations 18, and oxygen saturation 95%. GENERAL: Out of bed. LUNGS: Clear to auscultation, dyspnea on exertion. Respirations even and nonlabored, breathing on room air. No supplemental oxygen. CARDIOVASCULAR: Regular rate and rhythm without murmur. ABDOMEN: Large pannus. Positive bowel sounds. Nontender. No guarding. EXTREMITIES: With brawny edema bilaterally. Erythema noted at both legs with mild weeping which is improved. No clubbing or cyanosis noted. NEUROLOGICAL: GCS 15. Nonfocal. LABORATORY DATA: WBCs 6.75, hemoglobin 10.9, hematocrit 35.3, platelets 281. Sodium 138, potassium 4.8, chloride 103, CO2 28, anion gap 11.8, BUN 34, creatinine 2.2, estimated GFR 32, glucose 304. Fingerstick blood glucose levels 351, 303, calcium 9.3, total bilirubin 0.4, AST 21, ALT 25, alkaline phosphatase 84, total protein 6.4, albumin 2.8. Bilateral lower extremity venous Doppler ultrasound to rule out DVT completed today 02/16 and is negative for DVT bilaterally. ASSESSMENT AND PLAN: 1. Acute kidney injury with chronic kidney disease, stage unknown. Nephrology has been consulted and following. Continue diuresis. 2. Fluid volume overload. Continue Lasix. Monitor intake and output. Continue fluid restriction of 1.5 L per day. 3. Uncontrolled type 2 diabetes mellitus with hyperglycemia. Hemoglobin A1c 9.7%. Fingerstick blood glucose levels above 300. Continue renal ADA diet along with fluid restriction. Continue sliding scale insulin. 4. Controlled hypertension with chronic kidney disease. Continue Lasix, metoprolol, p.r.n. hydralazine. 5. Coronary artery disease, history of coronary artery bypass graft x2 vessels. Cardiology following. 6. Hyperlipidemia, chronic, improved. Continue Zetia, fenofibrate and atorvastatin. 7. Prophylaxis, Protonix. Billing code [id number]. Time spent 35 minutes. Dictated by Shyam Ray, MICHAEL MD SHARAN MeredithP/MODL /[id number]
--- NOTE | 2020-02-22 11:50 | Progress Note ---
DATE: 02/18/2020 SUBJECTIVE: The patient complains of headache 4 out of 10 on a 0-10 pain scale per the nurse, received medication. He is on his right side of sleep. OBJECTIVE: VITAL SIGNS: Temperature 98.3, heart rate 82, blood pressure 138/75, respirations 18, and oxygen saturation 97%, GENERAL: On his right side. LUNGS: Clear to auscultation. Respiratory pattern even and unlabored. HEENT: EOMI. NECK: Supple. CARDIOVASCULAR: Regular rate and rhythm. No murmur. ABDOMEN: Bowel sounds positive. Soft, nontender. EXTREMITIES: With brawny edema, mild erythema bilaterally. No clubbing. NEUROLOGICAL: GCS 15. Nonfocal. LABORATORY DATA: Sodium 141, potassium 5.3, chloride 103, CO2 of 30, anion gap 13.3, BUN 32, creatinine 2.24, estimated GFR 31, glucose 226, calcium 9.4. Fingerstick blood glucose levels 216, 300, 161. ASSESSMENT AND PLAN: 1. Acute kidney injury with underlying chronic kidney disease, probable stage 3. Nephrology seeing and evaluating the patient. BUN 32, creatinine 2.24, estimated GFR in the 30s. 2. Fluid volume overload. Continue Lasix. Monitor intake and output. Continue fluid restriction of 1.5 L per day. 3. Acute cellulitis, bilateral lower extremities with weeping edema. Continue clindamycin. WBCs within normal limits 6.75. Denies chills. Afebrile. 4. Uncontrolled type 2 diabetes mellitus with hyperglycemia. Hemoglobin A1c 9.7%. Continue renal diabetic diet, sliding scale insulin. Monitor fingerstick blood glucose levels. 5. Controlled hypertension with chronic kidney disease. Continue beta juan alberto, Lasix, p.r.n. hydralazine. Blood pressure 138/75, heart rate 82. 6. Coronary artery disease, history of coronary artery bypass graft x2 vessels. Cardiology following. 7. Chronic hyperlipidemia, improved. Continue atorvastatin and Zetia. Per Nephrology, fenofibrate discontinued due to potential nephrotoxic long-term effects. 8. Morbid obesity with BMI of 40.36. Dietary restrictions. 9. Prophylaxis, Pepcid. Billing code [id number]. Time spent 35 minutes. Dictated by Shyam Ray, MICHAEL MD OMER Meredith/THIERRYL /[id number]
== END 2020-02-20 12:25 | disposition home or self-care (01) | DRG 291 ==
LOC: ER 18:10 → ERHOLD 20:54 → MED/SURG3 02-15 00:08
PROVIDERS: ADMIT Internal Medicine; ATTEND Internal Medicine
DX: I13.0 Hypertensive heart and chronic kidney disease with heart failure and stage 1 through stage 4 chronic kidney disease, or unspecified chronic kidney disease (principal); I50.33 Acute on chronic diastolic (congestive) heart failure; N17.9 Acute kidney failure, unspecified; L03.116 Cellulitis of left lower limb; L03.115 Cellulitis of right lower limb; Z68.41 Body mass index [BMI] 40.0-44.9, adult; N18.3 Chronic kidney disease, stage 3 (moderate); I25.10 Atherosclerotic heart disease of native coronary artery without angina pectoris; Z95.5 Presence of coronary angioplasty implant and graft; E11.22 Type 2 diabetes mellitus with diabetic chronic kidney disease; E78.5 Hyperlipidemia, unspecified; E66.01 Morbid (severe) obesity due to excess calories; E03.9 Hypothyroidism, unspecified; Z11.59 Encounter for screening for other viral diseases; E11.319 Type 2 diabetes mellitus with unspecified diabetic retinopathy without macular edema; Z79.4 Long term (current) use of insulin; E87.5 Hyperkalemia; Z95.1 Presence of aortocoronary bypass graft; E11.21 Type 2 diabetes mellitus with diabetic nephropathy; E11.65 Type 2 diabetes mellitus with hyperglycemia; Z88.0 Allergy status to penicillin; I44.4 Left anterior fascicular block; G47.33 Obstructive sleep apnea (adult) (pediatric)
CPT/HCPCS: 36415; 71045; 76770; 80048; 80053; 80061; 81001; 81015; 82550; 82553; 82570; 82948; 83036; 83735; 83880; 83970; 84100; 84156; 84165; 84443; 84484; 84550; 85025; 93005; 93306; 93970; 99284; J1815; J1817; J1940; J2405; J7050; U0002

== ENCOUNTER 2022-01-11 19:20 | Emergency (ER) | payer OTHER ==
[~2022-01-11] VITALS: Ht 185.4 cm; Wt 138.8 kg
[~2022-01-11 19:20] MED LIST: ALOGLIPTIN12.5 MG PO; ASPIRIN CHEW81 MG PO; ATORVASTATIN CA20 MG PO; FENOFIBRATE145 MG PO; FUROSEMIDE40 MG PO; FUROSEMIDE80 MG PO; GABAPENTIN300 MG PO; LEVOTHYROXINE88 MCG PO; LISINOPRIL10 MG PO; METOLAZONE5 MG PO; METOPROLOL SUCC25 MG PO; VASOTEC10 MG PO; ZETIA10 MG PO
[2022-01-11 20:36] LABS: BASOPHILS % 0.5 % (0.0-1.0); EOSINOPHILS # (AUTO) 0.1 (0.0-0.4); EOSINOPHILS % 2.2 % (0.0-6.0); HEMATOCRIT 31.7 % (38.2-49.6); HEMOGLOBIN 9.8 g/dL (14.0-18.0); LYMPHOCYTES # (AUTO) 0.8 (1.0-3.2); LYMPHOCYTES % 11.8 % (18.0-39.1); MEAN CORPUSCULAR HEMOGLOBIN 26.1 pg (28-32); MEAN CORPUSCULAR HGB CONC 30.9 g/dL (31-35); MEAN CORPUSCULAR VOLUME 84.3 fL (81-99); MONOCYTES # (AUTO) 0.4 (0.2-0.8); MONOCYTES % 6.6 % (4.4-11.3); NEUTROPHILS # (AUTO) 4.9 (2.1-6.9); PLATELET COUNT 264 x10e3/uL (140-360); RED BLOOD COUNT 3.76 x10e6/uL (4.3-5.7); RED CELL DISTRIBUTION WIDTH 13.4 % (11.7-14.4)
[2022-01-11 21:00] LABS: ALBUMIN 2.4 g/dL (3.5-5.0); ALBUMIN/GLOBULIN RATIO 0.6 (0.8-2.0); ANION GAP 14.5 mmol/L (8-16); CALCIUM 8.1 mg/dL (8.4-10.2); CREATININE, SERUM 3.4 mg/dL (0.72-1.25); POTASSIUM 4.5 mmol/L (3.5-5.1)
[2022-01-11 21:08] LABS: CREATINE KINASE MB 4.7 ng/mL (0-5.0)
[2022-01-11 21:54] LABS: CLARITY,URINE CLEAR (CLEAR); COLOR,URINE YELLOW (YELLOW); KETONES,URINE NEGATIVE (NEGATIVE); LEUKOCYTE ESTERASE ,URINE NEGATIVE (NEGATIVE); NITRITE,URINE NEGATIVE (NEGATIVE); PROTEIN,URINE DIPSTICK >=300 (NEGATIVE); URINE UROBILINOGEN 0.2 mg/dL (0.2 - 1)
[2022-01-11] MEDS ORDERED: FUROSEMIDE INJ 10 MG/ML 4 ML VIAL IV ONE (22:00)
[2022-01-11 22:02] LABS: BACTERIA,URINE FEW /HPF; EPITHELIAL CELLS,URINE RARE /LPF; WBC,URINE (MAN) 0-5 /HPF (0-5)
[2022-01-11] MEDS ORDERED: FUROSEMIDE INJ 10 MG/ML 4 ML VIAL ONE (22:10)
== END 2022-01-11 23:00 | disposition home or self-care (01) ==
LOC: ER 20:37
DX: R06.02 Shortness of breath (principal); I50.9 Heart failure, unspecified; R60.9 Edema, unspecified; R94.31 Abnormal electrocardiogram [ECG] [EKG]
CPT/HCPCS: 36415; 71045; 80053; 81001; 82550; 82553; 83880; 84484; 85025; 93005; 99284; J1940

== ENCOUNTER → 2022-02-03 | Outpatient (CLI) | payer OTHER ==
[~2022-02-03] MED LIST changes: +DIATRIZOATE MEGL/DIATRIZOA SOD 30 ML BTL PO ONE; +IOPAMIDOL 370 MG/ML 100 ML INFUS..BTL INJ ONE
[2022-02-03 13:23] LABS: CREATININE, SERUM 4.2 mg/dL (0.72-1.25)
== END ==
LOC: CT 12:13
PROVIDERS: ATTEND Family Medicine
DX: R10.31 Right lower quadrant pain (principal)
CPT/HCPCS: 36415; 74176; 82565; 82948; 84520; Q9967

== ENCOUNTER 2024-03-30 22:31 | Observation (INO) | payer BC ==
[~2024-03-30] VITALS: Ht 185.4 cm; Wt 103.9 kg
[~2024-03-30 22:31] MED LIST changes: -DIATRIZOATE MEGL/DIATRIZOA SOD 30 ML BTL PO ONE; -IOPAMIDOL 370 MG/ML 100 ML INFUS..BTL INJ ONE
[2024-03-30 23:17] LABS: BASOPHILS % 0.2 % (0.0-1.0); EOSINOPHILS # (AUTO) 0.2 (0.0-0.4); EOSINOPHILS % 3.4 % (0.0-6.0); HEMATOCRIT 32.1 % (38.2-49.6); HEMOGLOBIN 10.8 g/dL (14.0-18.0); LYMPHOCYTES # (AUTO) 0.7 (1.0-3.2); LYMPHOCYTES % 11.7 % (18.0-39.1); MEAN CORPUSCULAR HGB CONC 33.6 g/dL (31-35); MEAN CORPUSCULAR VOLUME 86.1 fL (81-99); MONOCYTES # (AUTO) 0.4 (0.2-0.8); MONOCYTES % 7.2 % (4.4-11.3); NEUTROPHILS # (AUTO) 4.3 (2.1-6.9); PLATELET COUNT 278 x10e3/uL (140-360); RED BLOOD COUNT 3.73 x10e6/uL (4.3-5.7); RED CELL DISTRIBUTION WIDTH 12.8 % (11.7-14.4); WHITE BLOOD COUNT 5.57 x10e3/uL (4.8-10.8)
[2024-03-30 23:33] LABS: ALBUMIN 3.5 g/dL (3.5-5.0); ALBUMIN/GLOBULIN RATIO 1.2 (0.8-2.0); ANION GAP 17.1 mmol/L (8-16); BILIRUBIN,TOTAL 0.9 mg/dL (0.2-1.2); CALCIUM 9.3 mg/dL (8.4-10.2); CREATININE, SERUM 1.92 mg/dL (0.72-1.25); POTASSIUM 4.1 mmol/L (3.5-5.1); TOTAL PROTEIN 6.5 g/dL (6.5-8.1)
[2024-03-30 23:40] LABS: TROPONIN I 0.256 ng/mL (0-0.300)
[2024-03-31] VITALS (7 sets, daily range): BP systolic 102–115; BP diastolic 60–78; PULSE 68–80; RESP 16–20; TEMP 97.6–98.6; O2SAT 95–100
[2024-03-31 03:25] LABS: BLOOD UREA NITROGEN 23 mg/dL (7-26); GLUCOSE 117 mg/dL (74-118); OSMOLALITY,SERUM 252 mOsm/kg (278-305); SODIUM 123 mmol/L (136-145)
[2024-03-31] MEDS ORDERED: PROGRAF0.5 MG PO (05:22)
[2024-03-31] MEDS ORDERED: CELLCEPT250 MG PO (05:23)
[2024-03-31] MEDS ORDERED: PREDNISONE5 MG PO (05:24)
[2024-03-31] MEDS ORDERED: BACTRIM 400-801 EACH PO (05:25)
[2024-03-31] MEDS ORDERED: MYCELEX PO (05:29)
[2024-03-31] MEDS ORDERED: PANTOPRAZOLE SO40 MG PO (05:30)
[2024-03-31] MEDS ORDERED: ASPIRIN81 MG PO (05:31)
[2024-03-31] MEDS ORDERED: TRICOR48 MG PO (05:36)
[2024-03-31] MEDS ORDERED: OZEMPIC2 MG/0.75 (05:40)
[2024-03-31] MEDS ORDERED: TRESIBA100 UNIT/1 SC (05:42)
[2024-03-31] MEDS ORDERED: HUMALOG SC (05:44)
[2024-03-31] MEDS ORDERED: TYLENOL #3 (05:47)
[2024-03-31] MEDS ORDERED: DOCUSATE SODIU100 M1 PO (05:49)
[2024-03-31] MEDS: TACROLIMUS 0.5 MG CAP PO SCH ×2 (08:30→11:00)
[2024-03-31] MEDS ORDERED: HYDRALAZINE HCL 20 MG/ML VIAL IV PRN (08:30)
[2024-03-31] MEDS ORDERED: ACETAMINOPHEN 325 MG TAB PO PRN (08:30)
[2024-03-31] MEDS: MYCOPHENOLATE MOFETIL 250 MG CAP PO SCH (08:30)
[2024-03-31] MEDS ORDERED: BISACODYL 10 MG SUPP PR PRN (08:30)
[2024-03-31] MEDS ORDERED: DEXTROSE 50% SYRINGE 50 ML IV PRN (08:30)
[2024-03-31] MEDS: PREDNISONE 5 MG TAB PO SCH (09:00)
[2024-03-31] MEDS: SENNOSIDES 8.6 MG TAB PO SCH (09:00)
[2024-03-31] MEDS: DOCUSATE SODIUM 100 MG CAP PO SCH (09:00)
[2024-03-31] MEDS: ASPIRIN 81 MG CHEW TAB PO SCH (09:46)
[2024-03-31] MEDS: FENOFIBRATE 48 MG TAB PO SCH (09:47)
[2024-03-31] MEDS: EZETIMIBE 10 MG TAB PO SCH (09:47)
[2024-03-31] MEDS: FUROSEMIDE 40 MG TAB PO SCH (09:47)
[2024-03-31] MEDS: GABAPENTIN 300 MG CAP PO SCH (09:48)
[2024-03-31] MEDS: MUPIROCIN 2% OINT 22 GM TUBE TOP SCH (09:56)
[2024-03-31] MEDS: PANTOPRAZOLE SOD 40 MG TABEC PO SCH (09:58)
[2024-03-31] MEDS: LEVOTHYROXINE SODIUM 100 MCG TAB PO SCH (10:02)
[2024-03-31] MEDS: SODIUM CHLORIDE 1 GM TAB PO SCH (10:28)
[2024-03-31] MEDS: SODIUM CHLORIDE 0.9% 1000ML 1,000 ML IV STA (10:30)
[2024-03-31] MEDS: ONDANSETRON HCL INJ 2MG/ML 2ML 2 MG/ML VIAL IV PRN (10:38)
[2024-03-31] MEDS: INSULIN LISPRO 100 UNIT/1 ML 3ML VIAL SQ SCH (11:30)
[2024-03-31] MEDS: FUROSEMIDE INJ 10 MG/ML 2 ML VIAL IV ONE (12:50)
[2024-03-31] MEDS: HEPARIN SOD (PORCINE) 5,000 UNIT/ML VIAL SC SCH (15:16)
[2024-03-31] MEDS ORDERED: MYCOPHENOLATE MOFETIL 250 MG CAP PO SCH (17:00)
[2024-03-31 17:14] LABS: ANION GAP 14.4 mmol/L (8-16); CALCIUM 8.9 mg/dL (8.4-10.2); CREATININE, SERUM 1.65 mg/dL (0.72-1.25); POTASSIUM 4.4 mmol/L (3.5-5.1)
[2024-03-31] MEDS ORDERED: SODIUM CHLORI1000 M2 PO (18:09)
[2024-03-31] MEDS ORDERED: INSULIN GLARGINE 100 UNITS/ML VIAL SQ SCH (21:00)
[2024-03-31] MEDS ORDERED: ATORVASTATIN 40 MG TAB PO SCH (21:00)
[2024-03-31] MEDS ORDERED: TACROLIMUS 1 MG CAP PO SCH (21:00)
== END 2024-03-31 18:45 | disposition home or self-care (01) ==
LOC: ER 22:35 → ERHOLD 03-31 00:52 → MED/SURG3 03-31 02:10
PROVIDERS: ADMIT Internal Medicine; ATTEND Internal Medicine
DX: E87.1 Hypo-osmolality and hyponatremia (principal); I12.9 Hypertensive chronic kidney disease with stage 1 through stage 4 chronic kidney disease, or unspecified chronic kidney disease; E11.22 Type 2 diabetes mellitus with diabetic chronic kidney disease; N18.4 Chronic kidney disease, stage 4 (severe); Z94.0 Kidney transplant status; Z79.4 Long term (current) use of insulin; D84.821 Immunodeficiency due to drugs; Z79.60 Long term (current) use of unspecified immunomodulators and immunosuppressants; E78.5 Hyperlipidemia, unspecified; E03.9 Hypothyroidism, unspecified; Z79.621 Long term (current) use of calcineurin inhibitor; I25.10 Atherosclerotic heart disease of native coronary artery without angina pectoris; D63.1 Anemia in chronic kidney disease; R20.0 Anesthesia of skin; E11.42 Type 2 diabetes mellitus with diabetic polyneuropathy; Z95.1 Presence of aortocoronary bypass graft; E66.09 Other obesity due to excess calories; Z68.34 Body mass index [BMI] 34.0-34.9, adult; Z79.52 Long term (current) use of systemic steroids
CPT/HCPCS: 36415 ×2; 70450; 71045; 72125; 80048; 80053; 82550; 82947; 82948; 83690; 83880; 83935; 84295; 84300; 84484; 84520; 85025; 93005; 99284; G0378; J1644; J1940; J2405; J7030; J7512; J7517